=== PATIENT | male | born 1975 | race Caucasian/White ===

== ENCOUNTER 2018-10-17 09:46 | Inpatient (IN) | payer MEDICAID ==
[~2018-10-17] VITALS: Ht 190.5 cm; Wt 62.3 kg
[2018-10-17 10:08] VITALS: Ht 190.5 cm; Wt 62.3 kg
[2018-10-17] MEDS ORDERED: SEROQUEL100 MG PO (10:09)
[2018-10-17] MEDS ORDERED: NOVOLOG100 UNIT/1 SC (10:09)
[2018-10-17] MEDS ORDERED: ZESTRIL10 MG PO (10:09)
[2018-10-17] MEDS ORDERED: TRESIBA FL100 UNIT/1 SC (10:09)
--- NOTE | 2018-10-17 10:23 | NUR ---
POC GLUCOSE 433. NOTIFIED
[2018-10-17 10:31] LABS: BASOPHILS 0.7 % (0-2); EOSINOPHILS 0.7 % (0-7); HEMATOCRIT 37.3 % (42.0-54.0); IMMATURE GRANULOCYTES 0.1 % (0-5); LYMPHOCYTES 24.6 % (15-50); MCH 31.1 pg (26.0-34.0); MCHC 37.5 g/dL (31.0-37.0); MCV 82.9 fL (80.0-100.0); MEAN PLATELET VOLUME 9.9 fL (7.4-10.4); MONOCYTES 11.7 % (2-11); NEUTROPHILS 62.2 % (40-80); PLATELET COUNT 199 10x3/uL (130-400); RDW 13.7 % (11.5-14.5); WBC 6.7 10x3/uL (4.8-10.8)
[2018-10-17 10:40] LABS: APPEARANCE CLEAR (CLEAR); BILIRUBIN NEGATIVE (NEGATIVE); COLOR YELLOW (YELLOW); GLUCOSE 1000 mg/dL (NEGATIVE); KETONE NEGATIVE (NEGATIVE); NITRITE NEGATIVE (NEGATIVE); PROTEIN NEGATIVE (NEGATIVE); SPECIFIC GRAVITY 1.015 (1.005-1.020); UROBILINOGEN NORMAL (NORMAL)
[2018-10-17 10:56] LABS: KETONE - SERUM NEGATIVE (NEGATIVE)
[2018-10-17 11:03] LABS: ALBUMIN 3.4 g/dL (3.4-5.0); ALKALINE PHOSPHATASE 114 U/L (46-116); ALT (SGPT) 46 U/L (10-68); BILIRUBIN - TOTAL 0.29 mg/dL (0.2-1.3); CALC OSMOLALITY 274 mosm/kg (275-300); CALCIUM 8.4 mg/dL (8.5-10.1); CARBON DIOXIDE 25.5 mmol/L (21.0-32.0); CHLORIDE - SERUM 92 mmol/L (98-107); CREATININE - SERUM 0.9 mg/dL (0.6-1.3); GLUCOSE 386 mg/dL (74-106); MAGNESIUM - SERUM 2.1 mg/dL (1.8-2.4); POTASSIUM - SERUM 3.9 mmol/L (3.5-5.1); PROTEIN - SERUM 7.5 g/dL (6.4-8.2); SODIUM 128 mmol/L (136-145); UREA NITROGEN 18 mg/dL (7-18); eGFR NON AFRICAN AMERICAN > 90 mL/min (90-120)
--- NOTE | 2018-10-17 11:57 | NUR ---
FSBS RECHECKED 216
[2018-10-17 13:39] VITALS: BP 106/73
--- NOTE | 2018-10-17 14:05 | NUR ---
FSBS 166
--- NOTE | 2018-10-17 14:49 | NUR ---
SANDWICH GIVEN TO PT
--- NOTE | 2018-10-17 15:56 | NUR ---
ATTEMPTED REPORT [id number]
[2018-10-17 16:09] VITALS: BP 116/84
[2018-10-17 18:20] VITALS: BP 116/83
--- NOTE | 2018-10-17 20:00 | NUR ---
SITTING UP IN BED. ALERT AND ORIENTED X4. ANXIOUS AND RESTLESS. RESP EVEN AND NONLABORED. BBS CTA. BS PRESENT X4 QUADS. LUMPS NOTED TO ABD. PT STATES HE DOESNT KNOW WHAT IT IS AND HASNT BEEN SEEN BY A DR FOR IT BECAUSE OF HIS INSURANCE. DENIES PAIN. AMBULATORY. STATES HE IS HUNGRY AND IS EATING MARIO CRACKERS. LR @ 125 ML/HR INFUSING IN LT FOREARM WITHOUT DIFF. SR ELEVATED X2. CL IN REACH.
--- NOTE | 2018-10-17 21:37 | NUR ---
FSBS WAS "HI" ON GLUCOMETER. ORDERED STAT GLUCOSE PER LAB. RESULTS ARE 591. SPOKE WITH MD OPHTHALMOLOGIST WHO WILL NOTIFY MD. PT GIVEN HUM R 20 UNITS SQ AT THIS TIME.
[2018-10-17 21:42] VITALS: BP 120/83
--- NOTE | 2018-10-17 23:18 | NUR ---
FSBS RECHECKED AND GLUCOMETER READS HI. NOTIFIED HOUSE SUP WHO WILL SPEAK WITH MD. ORDER PLACED FOR LAB TO DRAW GLUCOSE LEVEL.
--- NOTE | 2018-10-18 00:11 | NUR ---
NEW ORDERS NOTED FOR HYPERGLYCEMIA TX. GLUCOSE CAME BACK 437 PER LAB DRAW. NOTIFIED HOUSE SUP. WILL NOT GIVE HUM R IV. MEDICATED WITH HUM R 28 U SQ. WILL CONT TO MONITOR CLOSELY.
[2018-10-18 01:10] VITALS: BP 125/92
--- NOTE | 2018-10-18 02:07 | NUR ---
FSBS SPOT CHECK 203. PT ASKING FOR CRACKERS. INFORMED PT THAT HE DIDNT NEED ANYTHING TO EAT YET. WILL RECHECK AT 0400.
[2018-10-18 04:46] VITALS: BP 103/74
--- NOTE | 2018-10-18 04:46 | NUR ---
NAHED SLEPT MUCH TONIGHT. FSBS AT 0400 WAS 95. PT REQUESTING SANDWICH. DISCOURAGED FROM EATING UNITL BREAKFAST UNLESS BLOOD SUGAR DROPS. HE VERBALIZES UNDERSTANDING.
[2018-10-18 06:49] LABS: BASOPHILS 0.8 % (0-2); EOSINOPHILS 0.9 % (0-7); HEMOGLOBIN 12.9 g/dL (13.5-17.5); IMMATURE GRANULOCYTES 0.3 % (0-5); LYMPHOCYTES 41.4 % (15-50); MCH 30.1 pg (26.0-34.0); MCHC 35.8 g/dL (31.0-37.0); MCV 84.1 fL (80.0-100.0); MEAN PLATELET VOLUME 10.3 fL (7.4-10.4); MONOCYTES 13.4 % (2-11); NEUTROPHILS 43.2 % (40-80); PLATELET COUNT 211 10x3/uL (130-400); RBC 4.28 10x6/uL (4.20-6.10); RDW 13.8 % (11.5-14.5); WBC 6.6 10x3/uL (4.8-10.8)
[2018-10-18 07:16] LABS: ALBUMIN 2.6 g/dL (3.4-5.0); ALKALINE PHOSPHATASE 82 U/L (46-116); ALT (SGPT) 43 U/L (10-68); BILIRUBIN - TOTAL 0.27 mg/dL (0.2-1.3); CALCIUM 7.8 mg/dL (8.5-10.1); CARBON DIOXIDE 31.7 mmol/L (21.0-32.0); CHLORIDE - SERUM 99 mmol/L (98-107); MAGNESIUM - SERUM 1.9 mg/dL (1.8-2.4); SODIUM 138 mmol/L (136-145)
[2018-10-18 07:19] LABS: CALC OSMOLALITY 271 mosm/kg (275-300); CREATININE - SERUM 0.6 mg/dL (0.6-1.3); GLUCOSE 66 mg/dL (74-106); POTASSIUM - SERUM 3.2 mmol/L (3.5-5.1); UREA NITROGEN 7 mg/dL (7-18); eGFR NON AFRICAN AMERICAN > 90 mL/min (90-120)
--- NOTE | 2018-10-18 08:21 | NUR ---
AWAKE AND ALERT, ORIENTED X4, EVEN UNLABORED BREATHING, BS FINGERSTICK WAS 174, RECIEVED 8UNITS REGULAR INSULIN, IV IN LEFT FOREARM INFUSING LR AT 125, DENIES ANY CURRENT NEEDS OR DISCOMFORTS, BED LOWERED AND LOCKED, CALL LIGHT WITHIN REACH. CPOC
[2018-10-18 09:40] VITALS: BP 125/90
--- NOTE | 2018-10-18 11:12 | NUR ---
IV OUT. PT STATED "IT MUST HAVE GOTTEN CAUGHT ON SOMETHING" MODERATE AMOUNT OF BLEEDING, APPLIED PRESSURE FOR 3 MINUTES TO CONTROL BLEEDING, COMPLETE LINEN CHANGE REQUIRED, PT SHOWERED, GOWN PROVIDED, DENIES ANY OTHER NEEDS OR DISCOMFORTS, BED LOWERED AND LOCKED, CALL LIGHT WITHIN REACH. CPOC
[2018-10-18 14:15] VITALS: BP 97/64
--- NOTE | 2018-10-18 18:25 | NUR ---
DISCHARGE INSTRUCTIONS GIVEN. VERBAL AND HANDOUTS, STRESSED THE IMPORTANCE OF FINDING A NEW PCP THAT IS ABLE TO TAKE HIS NEW INSURNACE SO THAT HE CAN BETTER MANAGE HIS HYPERGLYCEMIA. DENIES ANY QUESTIONS OR NEEDS. AMBULATORY. LEFT UNIT WITH FAMILY.
--- NOTE | 2018-10-19 09:30 | NUR ---
PT CALLED IN REGARDS TO ASSISTANCE WITH INSULIN UPON DC, PT IS ON NOVOLOG INSULIN, SPOKE WITH [employer] OFFICER [employer] AND [employer], PT HAS [employer] INSURANCE AND SHOULD BE COVERED. PT GAVE NUMBER [phone] TO RETURN CALL, CALLED NUMBER BACK AND NO ANSWER, WILL TRY AGAIN THIS AFTERNOON TO REACH PT
--- NOTE | 2018-10-19 09:36 | NUR ---
PT RETURNED CALL, ADVISED PT THAT HUMILIN WAS NOT ORDERED FOR A DC MEDICATION THAT HE WOULD NEED TO GO THROUGH HIS PRIMARY CARE PHYSICIAN TO OBTAIN ORDER, PT STATED THAT DR OCONNELL DC PT TOLD HIM SCRIPT WOULD BE WRITTEN BUT WAS NOT GIVEN, PT HAS FOLLOW UP APPT THIS WEEK WITH PCP, ADVISED PT TO SPEAK WITH PCP IN REGARDS TO CONCERN WITH INSULIN AND THEY WOULD BE ABLE TO MONITOR
== END 2018-10-18 18:32 | disposition home or self-care (01) | DRG 638 ==
LOC: D.ER 09:46 → D.EDHOLD 14:24 → D.MS 15:01
PROVIDERS: Family Medicine; ADMIT Family Medicine Adult Medicine; ATTEND Family Medicine Adult Medicine
DX: E11.65 Type 2 diabetes mellitus with hyperglycemia (principal); E87.1 Hypo-osmolality and hyponatremia; F17.203 Nicotine dependence unspecified, with withdrawal; Z91.19 Patient's noncompliance with other medical treatment and regimen; E87.6 Hypokalemia; D50.9 Iron deficiency anemia, unspecified; I10 Essential (primary) hypertension